=== PATIENT | female | born 1985 | race Caucasian/White ===

== ENCOUNTER 2019-10-24 14:59 | Inpatient (IN) ==
[2019-10-24] MEDS ORDERED: Ondansetron ODT 4 MG TAB.RAPDIS SL ONE (15:38)
[2019-10-24 15:47] LABS: Basophils # 0.1 K/mcL (0.0-0.2); Basophils % 0.5 %; Eosinophils # 0.1 K/mcL (0.0-0.6); Hemoglobin 13.5 g/dL (11.5-15.4); Immature Granulocytes % 0.3 % (0-4); Lymphocytes % 39.5 %; Mean Corpuscular HGB Conc 32.1 g/dL (31.6-35.5); Mean Corpuscular Volume 90.1 fL (83.0-100.0); Mean Platelet Volume 11.5 fL (9.4-12.4); Monocytes # 0.9 K/mcL (0.0-1.3); Monocytes % 8.6 %; Platelet Count 357 K/mcL (140-400); Red Blood Count 4.66 M/mcL (3.82-4.97); Red Cell Distribution Width 12.4 % (11.5-14.5); Segmented Neutrophils % 50.1 %
[2019-10-24 15:51] LABS: Bilirubin,Urine Negative (Negative); Blood,Urine Negative (Negative); Clarity,Urine Ex.Turbid (Clear); Color,Urine Yellow (Yellow); Glucose,Urine (UA) Normal (Normal); Ketones,Urine 20 mg/dL (Negative); Leukocyte Esterase,Urine Negative (Negative); Mucus,Urine Many per lpf (None-Few); Nitrite,Urine Negative (Negative); PH,Urine 5.5 pH Units (5.0-8.0); Protein,Urine 70 mg/dL (Neg-Trace); Specific Gravity,Urine > 1.030 (1.010-1.025); Squamous Epithelial Cell,Urine Moderate per hpf (None-Few); Urobilinogen,Urine Normal (Normal)
[2019-10-24 15:52] LABS: Amphetamine Screen,Urine Negative ng/mL (Cutoff=1000); Barbiturate Screen,Urine Negative ng/mL (Cutoff=200); Benzodiazepines Screen,Urine Negative ng/mL (Cutoff=200); Cannabinoid Screen,Urine Positive ng/mL (Cutoff = 50); Cocaine Screen,Urine Negative ng/mL (Cutoff= 300); Opiate Screen,Urine Negative ng/mL (Cutoff=300); Phencyclidine Screen,Urine Negative ng/mL (Cutoff=25)
[2019-10-24 16:03] LABS: Acetaminophen < 10 mcg/mL (10-20); BUN/Creatinine Ratio 28 (6-26); Blood Urea Nitrogen 20 mg/dL (6-20); Calcium 9.9 mg/dL (8.6-10.3); Carbon Dioxide 22 mEq/L (23-29); Chloride 107 mEq/L (98-107); Ethanol < 10 mg/dL (Less than 10); Glucose 113 mg/dL (70-105); Osmolality,Calculated 289 (280-300); Potassium 3.6 mEq/L (3.5-5.1); Salicylate < 2.5 mg/dL (15.0-30.0); Sodium 138 mEq/L (136-145); eGFR For African Americans > 60 (> 60); eGFR For Non-African Americans > 60 (> 60)
[2019-10-24 16:15] LABS: Thyroid Stimulating Hormone 1.999 mcIU/mL (0.340-5.600)
[2019-10-24] MEDS ORDERED: Acetaminophen 325 MG TABLET PO PRN (17:21)
[2019-10-24] MEDS ORDERED: MOM Conc 10 ML UD.LIQ PO PRN (17:21)
[2019-10-24] MEDS ORDERED: haloperidoL 5 MG TABLET PO PRN (17:21)
[2019-10-24] MEDS ORDERED: traZODone 50 MG TABLET PO PRN (17:21)
[2019-10-24] MEDS ORDERED: *HR* LORazepam 1 MG TABLET PO PRN (17:21)
[2019-10-24] MEDS ORDERED: *HR* LORazepam 2 MG/ML VIAL IM PRN (17:21)
[2019-10-24] MEDS ORDERED: Haloperidol Lactate 5 MG/ML VIAL IM PRN (17:21)
[2019-10-24] MEDS: hydrOXYzine pamoate 25 MG CAPSULE PO PRN (19:01)
[2019-10-24] MEDS: Mag Hydrox/Al Hydrox/Simeth 30 ML UDC PO PRN (21:34)
[2019-10-25] MEDS: Nicotine 2 MG GUM BC PRN ×3 (08:00→16:03)
[2019-10-25] MEDS: hydrOXYzine pamoate 25 MG CAPSULE PO PRN ×4 (08:00→20:19)
[2019-10-25] MEDS ORDERED: QUEtiapine Fumarate 25 MG TABLET PO PRN (11:58)
[2019-10-25] MEDS: BuPROPion XL (24 HR) 150 MG TABLET PO SCH (12:18)
[2019-10-25] MEDS: PARoxetine 20 MG TABLET PO SCH (12:18)
[2019-10-25] MEDS: Ibuprofen 800 MG TABLET PO PRN (12:35)
[2019-10-25] MEDS: Mag Hydrox/Al Hydrox/Simeth 30 ML UDC PO PRN (16:41)
[2019-10-26] MEDS: Ibuprofen 800 MG TABLET PO PRN (09:39)
[2019-10-26] MEDS: BuPROPion XL (24 HR) 150 MG TABLET PO SCH (09:40)
[2019-10-26] MEDS: Nicotine 2 MG GUM BC PRN (10:31)
[2019-10-26 10:37] VITALS: BP 117/79
[2019-10-26] MEDS: PARoxetine 20 MG TABLET PO SCH (14:11)
== END 2019-10-26 14:50 | disposition home or self-care (01) | DRG 885 ==
LOC: EMEROOARM 14:59 → 1ANU 17:17
PROVIDERS: ADMIT Psychiatry & Neurology Psychiatry; ATTEND Psychiatry & Neurology Psychiatry